=== PATIENT | female | born 1975 | race African-American/Black ===

== ENCOUNTER 2022-03-31 17:58 | Emergency (ER) | payer SELFPAY ==
[2022-03-31] MEDS ORDERED: Cyclobenzaprine 10 MG TAB ONE (18:47)
== END 2022-03-31 18:50 | disposition home or self-care (01) ==
LOC: ERS 17:58
DX: S46.912A Strain of unspecified muscle, fascia and tendon at shoulder and upper arm level, left arm, initial encounter (principal); M62.838 Other muscle spasm; I10 Essential (primary) hypertension; F17.210 Nicotine dependence, cigarettes, uncomplicated; X58.XXXA Exposure to other specified factors, initial encounter; Z79.899 Other long term (current) drug therapy
CPT/HCPCS: 99283